=== PATIENT | female | born 1995 | race Caucasian/White ===

== ENCOUNTER 2021-07-26 21:01 | Emergency (ER) | payer OTHER ==
[~2021-07-26] VITALS: Ht 165.1 cm; Wt 68.2 kg
[2021-07-26 21:02] VITALS: BP 128/85
[2021-07-26] MEDS ORDERED: SPIR50TA4 PO (21:17)
[2021-07-26] MEDS ORDERED: METF-877 PO (21:17)
[2021-07-26] MEDS ORDERED: SPIR100T3 PO (21:17)
== END 2021-07-27 00:11 | disposition home or self-care (01) ==
LOC: M ED 21:01
DX: S80.851A Superficial foreign body, right lower leg, initial encounter (principal); X58.XXXA Exposure to other specified factors, initial encounter; Y92.9 Unspecified place or not applicable; Y93.89 Activity, other specified; Y99.9 Unspecified external cause status